=== PATIENT | male | born 1980 | race Caucasian/White ===

== ENCOUNTER 2023-01-01 13:41 | Observation (INO) | payer BC ==
[2023-01-01 14:02] VITALS: BMI 23.0
[2023-01-01] MEDS ORDERED: LACTATED RINGERS SOLUTION 1000 ML INFUS.BAG IV ONE (14:21)
[2023-01-01 15:29] LABS: BASO % 2.7 % (0-2.0); EOS % 3.1 % (0-4.5); HEMATOCRIT 38.3 % (35.4-49); HEMOGLOBIN 12.7 GM/dL (11.7-16.9); LYMPH % 35.5 % (8-40); MCH 32.1 pg (25.7-33.7); MCHC 33.2 g/dl (32.0-35.9); MEAN CELL VOLUME 96.6 fl (80-96); MEAN PLT VOLUME 10.6 fl (7.5-11.1); MONO % 4.6 % (3.8-10.2); NEUT % 54.1 % (42.8-82.8); PLATELET COUNT 53 10^3/uL (134-434); RBC 3.97 M/mm3 (4.00-5.60); RDW 14.3 % (11.9-15.9); WHITE BLOOD COUNT 3.9 K/mm3 (4.0-10.0)
[2023-01-01 16:04] LABS: POTASSIUM 3.1 mmol/L (3.5-5.1)
[2023-01-01 16:06] LABS: CALCIUM 7.4 mg/dL (8.5-10.1)
[2023-01-01 16:07] LABS: ALBUMIN 3.8 g/dl (3.4-5.0); BLOOD UREA NITROGEN 7.3 mg/dL (7-18)
[2023-01-01 16:10] LABS: CREATININE 0.4 mg/dL (0.55-1.3)
[2023-01-01] MEDS ORDERED: POTASSIUM CHLORIDE ORAL LIQUID 20 MEQ/15 ML PO ONE (16:10)
[2023-01-01 16:12] LABS: BILIRUBIN,TOTAL 0.6 mg/dL (0.2-1); TOT PROT 6.7 g/dl (6.4-8.2)
[2023-01-01] MEDS ORDERED: POTASSIUM CHLORIDE ORAL LIQUID 20 MEQ/15 ML ONE (16:12)
[2023-01-01 17:31] LABS: MAGNESIUM 1.4 mg/dL (1.8-2.4)
[2023-01-01] MEDS ORDERED: MAGNESIUM SULFATE IN WATER 2 GM/50 ML IVPB IVPB ONE ×2 (18:07→18:16)
[2023-01-01] MEDS ORDERED: diazePAM CARPU-JECT 10 MG/2 ML DISP.SYRIN IVPUSH ONE (22:34)
[2023-01-01] MEDS ORDERED: chlordiazePOXIDE HCL 25 MG CAPSULE PO ONE (22:34)
[2023-01-01 23:11] VITALS: RESP 18
[2023-01-01] MEDS ORDERED: diazePAM CARPU-JECT 10 MG/2 ML DISP.SYRIN ONE (23:11)
[2023-01-01] MEDS ORDERED: chlordiazePOXIDE HCL 25 MG CAPSULE ONE (23:12)
[2023-01-01 23:55] LABS: POTASSIUM 3.4 mmol/L (3.5-5.1)
[2023-01-01 23:56] LABS: BLOOD UREA NITROGEN 6.5 mg/dL (7-18); CALCIUM 7.9 mg/dL (8.5-10.1); MAGNESIUM 1.7 mg/dL (1.8-2.4)
[2023-01-02] LABS: CREATININE 0.5 mg/dL (0.55-1.3)
[2023-01-02] MEDS ORDERED: FOLIC ACID INJECTION - 1 MG, THIAMINE HCL 100 MG, MULTIVIT INJECTION ADULT 10 ML in SOD... IVPB ONE ×2 (03:33→05:43)
[2023-01-02] MEDS ORDERED: diazePAM CARPU-JECT 10 MG/2 ML DISP.SYRIN IVPUSH ONE (03:33)
[2023-01-02] MEDS ORDERED: diazePAM CARPU-JECT 10 MG/2 ML DISP.SYRIN ONE (03:37)
[2023-01-02] MEDS ORDERED: LORazepam 1 MG TABLET PO PRN (05:39)
[2023-01-02] MEDS: LORazepam 2 MG TABLET PO SCH ×2 (06:19→12:30)
[2023-01-02] MEDS: PHENYTOIN NA EXTENDED 100 MG CAPSULE (FP) PO ONE ×2 (06:19→06:22)
[2023-01-02] MEDS ORDERED: LORazepam 1 MG TABLET ONE (06:20)
[2023-01-02 11:17] LABS: HEMATOCRIT 35.6 % (35.4-49); MCH 32.4 pg (25.7-33.7); MCHC 33.7 g/dl (32.0-35.9); MEAN CELL VOLUME 96.1 fl (80-96); MEAN PLT VOLUME 10.4 fl (7.5-11.1); PLATELET COUNT 44 10^3/uL (134-434); RDW 13.8 % (11.9-15.9); WHITE BLOOD COUNT 4.6 K/mm3 (4.0-10.0)
[2023-01-02 11:59] LABS: POTASSIUM 3.7 mmol/L (3.5-5.1)
[2023-01-02] MEDS ORDERED: LORazepam 1 MG TABLET PO SCH (12:00)
[2023-01-02 12:02] LABS: CALCIUM 8.3 mg/dL (8.5-10.1)
[2023-01-02 12:03] LABS: ALBUMIN 3.4 g/dl (3.4-5.0); BLOOD UREA NITROGEN 7.1 mg/dL (7-18); MAGNESIUM 1.5 mg/dL (1.8-2.4)
[2023-01-02 12:05] LABS: CREATININE 0.4 mg/dL (0.55-1.3); PHOSPHOROUS 2.9 mg/dL (2.5-4.9)
[2023-01-02 12:07] LABS: BILIRUBIN,TOTAL 1.9 mg/dL (0.2-1); TOT PROT 6.4 g/dl (6.4-8.2)
[2023-01-02] MEDS: LORazepam 1 MG TABLET PO SCH ×3 (12:18→22:18)
[2023-01-02] MEDS: NICOTINE 14 MG/24 HOURS TOPICAL PATCH TD SCH (12:20)
[2023-01-02] MEDS: FOLIC ACID 1 MG TABLET (FP) PO SCH (12:20)
[2023-01-02] MEDS: THIAMINE HCL 200 MG/2 ML VIAL IVPB SCH (12:20)
[2023-01-02] MEDS: ENOXAPARIN NA (PORCINE) 40 MG/0.4 ML DISP.SYRIN SQ SCH (12:26)
[2023-01-02] MEDS: PHENYTOIN NA EXTENDED 100 MG CAPSULE (FP) PO SCH ×2 (15:10→22:19)
[2023-01-03] MEDS ORDERED: MELATONIN 5 MG TABLETS PO ONE (00:15)
[2023-01-03] MEDS ORDERED: LORazepam 1 MG TABLET PO SCH (05:00)
[2023-01-03] MEDS: PHENYTOIN NA EXTENDED 100 MG CAPSULE (FP) PO SCH (06:12)
[2023-01-03] MEDS ORDERED: ONDANSETRON 4 MG/2 ML VIAL IVPUSH PRN (08:12)
[2023-01-03 08:46] LABS: BASO % 1.4 % (0-2.0); EOS % 4.4 % (0-4.5); HEMATOCRIT 39.7 % (35.4-49); HEMOGLOBIN 13.1 GM/dL (11.7-16.9); LYMPH % 24.4 % (8-40); MCH 32.2 pg (25.7-33.7); MCHC 33.1 g/dl (32.0-35.9); MEAN CELL VOLUME 97.4 fl (80-96); MEAN PLT VOLUME 11.6 fl (7.5-11.1); MONO % 4.9 % (3.8-10.2); NEUT % 64.9 % (42.8-82.8); PLATELET COUNT 53 10^3/uL (134-434); RBC 4.07 M/mm3 (4.00-5.60); RDW 13.7 % (11.9-15.9); WHITE BLOOD COUNT 4.9 K/mm3 (4.0-10.0)
[2023-01-03 09:09] VITALS: BP 148/98; PULSE 88; TEMP 98
[2023-01-03 09:36] LABS: POTASSIUM 3.3 mmol/L (3.5-5.1)
[2023-01-03 09:38] LABS: ALBUMIN 4.1 g/dl (3.4-5.0)
[2023-01-03 09:39] LABS: BLOOD UREA NITROGEN 4.6 mg/dL (7-18)
[2023-01-03 09:41] LABS: CREATININE 0.5 mg/dL (0.55-1.3)
[2023-01-03 09:43] LABS: BILIRUBIN,TOTAL 1.6 mg/dL (0.2-1); TOT PROT 7.4 g/dl (6.4-8.2)
[2023-01-03 09:52] LABS: CALCIUM 9.6 mg/dL (8.5-10.1)
[2023-01-03] MEDS ORDERED: MULTIVITAMINS (DAILY MVI) TABLET (FP) PO SCH (10:00)
[2023-01-03] MEDS ORDERED: NICOTINE 21 MG/24 HOURS TOPICAL PATCH TD SCH (10:00)
[2023-01-03] MEDS: FOLIC ACID 1 MG TABLET (FP) PO SCH (10:04)
[2023-01-03] MEDS: THIAMINE HCL 200 MG/2 ML VIAL IVPB SCH (10:04)
[2023-01-03] MEDS: ENOXAPARIN NA (PORCINE) 40 MG/0.4 ML DISP.SYRIN SQ SCH (10:04)
[2023-01-03] MEDS: NICOTINE 14 MG/24 HOURS TOPICAL PATCH TD SCH (10:04)
[2023-01-04] MEDS ORDERED: LORazepam 0.5 MG TABLET PO PRN
[2023-01-04] MEDS ORDERED: LORazepam 0.5 MG TABLET PO SCH (05:00)
[2023-01-05] MEDS ORDERED: LORazepam 0.5 MG TABLET PO ONE (05:00)
== END 2023-01-03 10:59 | disposition left against medical advice (07) ==
LOC: JER 13:41 → JERBED 23:42 → J5S 01-02 09:54
PROVIDERS: ADMIT Internal Medicine; ATTEND Internal Medicine
PROC: 3E033NZ Introduction of Analgesics, Hypnotics, Sedatives into Peripheral Vein, Percutaneous Approach (ICD-10-PCS; principal; 2023-01-01)
PROC: 3E033GC Introduction of Other Therapeutic Substance into Peripheral Vein, Percutaneous Approach (ICD-10-PCS; 2023-01-01)
PROC: 3E0337Z Introduction of Electrolytic and Water Balance Substance into Peripheral Vein, Percutaneous Approach (ICD-10-PCS; 2023-01-01)
DX: F10.939 Alcohol use, unspecified with withdrawal, unspecified (principal); R29.6 Repeated falls; Z91.148 Patient's other noncompliance with medication regimen for other reason; Z29.89 Encounter for other specified prophylactic measures; R74.01 Elevation of levels of liver transaminase levels; D69.6 Thrombocytopenia, unspecified
CPT/HCPCS: 36415; 70450-TC; 76705-TC; 80048; 80053; 80185; 80307; 83735; 84100; 85025; 85027; 86704; 86709; 86803; 87340; 87517; 93005; 93010; 96365; 96367; 96375; 99285-25; G0378

== ENCOUNTER 2023-01-03 11:44 | Inpatient (IN) | payer BC ==
[2023-01-03] MEDS ORDERED: chlordiazePOXIDE HCL 25 MG CAPSULE PO ONE (12:40)
[2023-01-03] MEDS ORDERED: chlordiazePOXIDE HCL 25 MG CAPSULE ONE (12:45)
[2023-01-03] MEDS ORDERED: THIAMINE HCL 200 MG/2 ML VIAL IVPB ONE (14:01)
[2023-01-03] MEDS ORDERED: LACTATED RINGERS SOLUTION 1000 ML INFUS.BAG IV ONE (14:15)
[2023-01-03] MEDS ORDERED: THIAMINE HCL 200 MG/2 ML VIAL ONE (14:32)
[2023-01-03 14:33] LABS: BASO % 1.3 % (0-2.0); EOS % 1.7 % (0-4.5); HEMATOCRIT 38.5 % (35.4-49); HEMOGLOBIN 12.9 GM/dL (11.7-16.9); MCH 32.3 pg (25.7-33.7); MCHC 33.6 g/dl (32.0-35.9); MEAN CELL VOLUME 96.1 fl (80-96); MEAN PLT VOLUME 10.6 fl (7.5-11.1); PLATELET COUNT 49 10^3/uL (134-434); WHITE BLOOD COUNT 5.6 K/mm3 (4.0-10.0)
[2023-01-03 14:52] LABS: CHLORIDE 99 mmol/L (98-107); POTASSIUM 3.5 mmol/L (3.5-5.1); SODIUM 136 mmol/L (136-145)
[2023-01-03 14:56] LABS: ALBUMIN 4.1 g/dl (3.4-5.0); CALCIUM 9.6 mg/dL (8.5-10.1)
[2023-01-03 14:57] LABS: ANION GAP 9 mmol/L (4-13); BLOOD UREA NITROGEN 7.2 mg/dL (7-18); CO2 28 mmol/L (21-32); GLUCOSE,RANDOM 117 mg/dL (74-106)
[2023-01-03 14:59] LABS: CREATININE 0.6 mg/dL (0.55-1.3)
[2023-01-03 15:00] LABS: BILIRUBIN,TOTAL 1.3 mg/dL (0.2-1); SGOT/AST 224 U/L (15-37); SGPT/ALT 148 U/L (13-61); TOT PROT 7.5 g/dl (6.4-8.2)
[2023-01-03 15:02] LABS: ALK PHOS 93 U/L (45-117)
[2023-01-03] MEDS ORDERED: diazePAM CARPU-JECT 10 MG/2 ML DISP.SYRIN IVPUSH ONE ×4 (16:21→17:18)
[2023-01-03] MEDS ORDERED: diazePAM CARPU-JECT 10 MG/2 ML DISP.SYRIN ONE ×3 (16:22→17:20)
[2023-01-03 16:31] LABS: COCAINE, UR NEGATIVE (NEGATIVE); OPIATES, URI NEGATIVE (NEGATIVE); PHENCYCLIDINE,URINE NEGATIVE (NEGATIVE); URINE AMPHETAMINES NEGATIVE (NEGATIVE); URINE BARBITURATES NEGATIVE (NEGATIVE)
[2023-01-03 16:33] LABS: METHADONE, UR NEGATIVE (NEGATIVE)
[2023-01-03 16:34] LABS: URINE BENZODIAZEPINES POSITIVE (NEGATIVE)
[2023-01-03] MEDS ORDERED: chlordiazePOXIDE HCL 25 MG CAPSULE PO PRN (17:19)
[2023-01-03] MEDS ORDERED: ONDANSETRON 4 MG/2 ML VIAL IVPUSH PRN (17:19)
[2023-01-03] MEDS ORDERED: ACETAMINOPHEN 325 MG TABLET (FP) PO PRN (17:19)
[2023-01-03] MEDS: DEXMEDETOMIDINE PREMIX 400 MCG/100 ML BAG IVPB SCH ×2 (17:49→22:27)
[2023-01-03] MEDS ORDERED: PHENobarbital SODIUM 65 MG/1 ML VIAL IVPUSH ONE (19:00)
[2023-01-03 21:11] VITALS: BMI 20.9
[2023-01-03] MEDS: THIAMINE HCL 200 MG/2 ML VIAL IVPB SCH (21:22)
[2023-01-03] MEDS: CHLORHEXIDINE GLUCONATE 4% CLEANSER FOR DECOLONIZATION TP SCH (21:23)
[2023-01-03] MEDS: MUPIROCIN 2% TOPICAL OINTMENT FOR DECOLONIZATION NS SCH (21:51)
[2023-01-04] MEDS: THIAMINE HCL 200 MG/2 ML VIAL IVPB SCH ×3 (03:38→20:30)
[2023-01-04] MEDS: chlordiazePOXIDE HCL 25 MG CAPSULE PO SCH ×4 (05:36→22:51)
[2023-01-04] MEDS: DEXMEDETOMIDINE PREMIX 400 MCG/100 ML BAG IVPB SCH ×2 (05:40→18:30)
[2023-01-04 07:32] LABS: HEMATOCRIT 38.7 % (35.4-49); HEMOGLOBIN 12.7 GM/dL (11.7-16.9); MCH 32.2 pg (25.7-33.7); MCHC 32.8 g/dl (32.0-35.9); MEAN CELL VOLUME 98.1 fl (80-96); MEAN PLT VOLUME 11.8 fl (7.5-11.1); PLATELET COUNT 44 10^3/uL (134-434); RBC 3.94 M/mm3 (4.00-5.60); RDW 13.5 % (11.9-15.9); WHITE BLOOD COUNT 6.6 K/mm3 (4.0-10.0)
[2023-01-04 07:48] LABS: POTASSIUM 3.5 mmol/L (3.5-5.1)
[2023-01-04 07:52] LABS: ALBUMIN 3.4 g/dl (3.4-5.0); CALCIUM 8.4 mg/dL (8.5-10.1); MAGNESIUM 1.5 mg/dL (1.8-2.4)
[2023-01-04 07:54] LABS: BLOOD UREA NITROGEN 6.2 mg/dL (7-18)
[2023-01-04] MEDS ORDERED: MAGNESIUM SULFATE IN WATER 2 GM/50 ML IVPB IVPB ONE (07:55)
[2023-01-04 07:56] LABS: CREATININE 0.3 mg/dL (0.55-1.3)
[2023-01-04 07:57] LABS: PHOSPHOROUS 4.6 mg/dL (2.5-4.9); TOT PROT 6.6 g/dl (6.4-8.2)
[2023-01-04] MEDS: LACTATED RINGERS SOLUTION 1,000 ML/1,000 ML INFUS.BAG IV SCH (09:40)
[2023-01-04] MEDS: MUPIROCIN 2% TOPICAL OINTMENT FOR DECOLONIZATION NS SCH ×2 (09:40→21:15)
[2023-01-04] MEDS ORDERED: POTASSIUM CHLORIDE ORAL LIQUID 20 MEQ/15 ML PO ONE (10:00)
[2023-01-04] MEDS: FOLIC ACID 1 MG TABLET (FP) PO SCH ×2 (10:03→10:25)
[2023-01-04] MEDS: PANTOPRAZOLE 40 MG TABLET PO SCH ×2 (10:03→10:25)
[2023-01-04] MEDS: ENOXAPARIN NA (PORCINE) 40 MG/0.4 ML DISP.SYRIN SQ SCH (10:23)
[2023-01-04] MEDS: CHLORHEXIDINE GLUCONATE 4% CLEANSER FOR DECOLONIZATION TP SCH (21:15)
[2023-01-05] MEDS ORDERED: chlordiazePOXIDE HCL 10 MG CAPSULE PO PRN
[2023-01-05] MEDS: THIAMINE HCL 200 MG/2 ML VIAL IVPB SCH ×2 (04:22→12:43)
[2023-01-05] MEDS: chlordiazePOXIDE HCL 25 MG CAPSULE PO SCH ×4 (04:22→22:15)
[2023-01-05] MEDS: LACTATED RINGERS SOLUTION 1,000 ML/1,000 ML INFUS.BAG IV SCH ×3 (06:07→17:34)
[2023-01-05 07:03] LABS: HEMATOCRIT 34.7 % (35.4-49); HEMOGLOBIN 11.4 GM/dL (11.7-16.9); MCH 32.2 pg (25.7-33.7); MCHC 32.9 g/dl (32.0-35.9); MEAN PLT VOLUME 10.8 fl (7.5-11.1); PLATELET COUNT 46 10^3/uL (134-434); RBC 3.54 M/mm3 (4.00-5.60); RDW 13.4 % (11.9-15.9); WHITE BLOOD COUNT 4.5 K/mm3 (4.0-10.0)
[2023-01-05 07:09] LABS: INR 0.98 (0.83-1.09); PROTHROMBIN TIME (PATIENT) 11.4 SEC (9.7-13.0)
[2023-01-05 07:27] LABS: CALCIUM 7.8 mg/dL (8.5-10.1)
[2023-01-05 07:28] LABS: MAGNESIUM 1.6 mg/dL (1.8-2.4)
[2023-01-05 07:29] LABS: CREATININE 0.5 mg/dL (0.55-1.3)
[2023-01-05 07:30] LABS: BILIRUBIN,DIRECT 0.3 mg/dL (0.0-0.2); BILIRUBIN,TOTAL 0.8 mg/dL (0.2-1); PHOSPHOROUS 3.9 mg/dL (2.5-4.9); TOT PROT 5.6 g/dl (6.4-8.2)
[2023-01-05] MEDS ORDERED: MAGNESIUM SULF 50% (8.12 MEQ/2 ML-1 GM VIAL) IVPB ONE (09:30)
[2023-01-05] MEDS ORDERED: POTASSIUM CHLORIDE ORAL LIQUID 20 MEQ/15 ML PO ONE (09:45)
[2023-01-05] MEDS: PANTOPRAZOLE 40 MG TABLET PO SCH (10:30)
[2023-01-05] MEDS: FOLIC ACID 1 MG TABLET (FP) PO SCH (10:30)
[2023-01-05] MEDS: ENOXAPARIN NA (PORCINE) 40 MG/0.4 ML DISP.SYRIN SQ SCH (10:30)
[2023-01-05] MEDS: MUPIROCIN 2% TOPICAL OINTMENT FOR DECOLONIZATION NS SCH ×2 (10:31→21:36)
[2023-01-05] MEDS: NICOTINE 21 MG/24 HOURS TOPICAL PATCH TD SCH (15:39)
[2023-01-05] MEDS: CHLORHEXIDINE GLUCONATE 4% CLEANSER FOR DECOLONIZATION TP SCH (21:36)
[2023-01-06] MEDS ORDERED: LACTATED RINGERS SOLUTION 1,000 ML/1,000 ML INFUS.BAG IV SCH (04:13)
[2023-01-06] MEDS ORDERED: ACETAMINOPHEN 325 MG TABLET (FP) PO PRN (04:13)
[2023-01-06] MEDS ORDERED: chlordiazePOXIDE HCL 10 MG CAPSULE PO SCH (05:00)
[2023-01-06] MEDS: chlordiazePOXIDE HCL 10 MG CAPSULE PO SCH ×3 (06:08→16:53)
[2023-01-06] MEDS ORDERED: PANTOPRAZOLE 40 MG TABLET PO SCH (10:00)
[2023-01-06] MEDS ORDERED: FOLIC ACID 1 MG TABLET (FP) PO SCH (10:00)
[2023-01-06] MEDS ORDERED: THIAMINE HCL 200 MG/2 ML VIAL IVPB SCH ×2 (10:00)
[2023-01-06] MEDS ORDERED: ENOXAPARIN NA (PORCINE) 40 MG/0.4 ML DISP.SYRIN SQ SCH (10:00)
[2023-01-06] MEDS: NICOTINE 21 MG/24 HOURS TOPICAL PATCH TD SCH (10:20)
[2023-01-06 11:05] LABS: BASO % 1.4 % (0-2.0); EOS % 6.3 % (0-4.5); HEMATOCRIT 35.9 % (35.4-49); HEMOGLOBIN 11.7 GM/dL (11.7-16.9); LYMPH % 25.9 % (8-40); MCH 31.9 pg (25.7-33.7); MCHC 32.6 g/dl (32.0-35.9); MEAN CELL VOLUME 97.9 fl (80-96); MEAN PLT VOLUME 10.7 fl (7.5-11.1); MONO % 12.5 % (3.8-10.2); NEUT % 53.9 % (42.8-82.8); PLATELET COUNT 82 10^3/uL (134-434); RBC 3.66 M/mm3 (4.00-5.60); RDW 13.4 % (11.9-15.9); WHITE BLOOD COUNT 5.4 K/mm3 (4.0-10.0)
[2023-01-06 11:23] LABS: POTASSIUM 4.8 mmol/L (3.5-5.1)
[2023-01-06 11:25] LABS: ALBUMIN 3.2 g/dl (3.4-5.0); BLOOD UREA NITROGEN 4.9 mg/dL (7-18); CALCIUM 8.2 mg/dL (8.5-10.1); MAGNESIUM 1.8 mg/dL (1.8-2.4)
[2023-01-06 11:28] LABS: CREATININE 0.5 mg/dL (0.55-1.3)
[2023-01-06 11:30] LABS: BILIRUBIN,TOTAL 0.6 mg/dL (0.2-1); TOT PROT 6.5 g/dl (6.4-8.2)
[2023-01-06] MEDS ORDERED: levETIRAcetam 500 MG TABLET (FP) PO ONE (17:41)
[2023-01-06 19:30] VITALS: BP 131/89; PULSE 68; RESP 18; TEMP 98
[2023-01-06] MEDS ORDERED: levETIRAcetam 500 MG TABLET (FP) PO SCH (22:00)
[2023-01-07] MEDS ORDERED: chlordiazePOXIDE HCL 10 MG CAPSULE PO SCH ×2 (05:00)
[2023-01-08] MEDS ORDERED: chlordiazePOXIDE HCL 10 MG CAPSULE PO ONE ×2 (05:00)
== END 2023-01-06 21:11 | disposition left against medical advice (07) | DRG 770 ==
LOC: JER 11:44 → JERBED 16:50 → JICU 19:06 → J5S 01-06 05:59
PROVIDERS: ADMIT Internal Medicine Pulmonary Disease
PROC: HZ2ZZZZ Detoxification Services for Substance Abuse Treatment (ICD-10-PCS; principal; 2023-01-03)
DX: F10.131 Alcohol abuse with withdrawal delirium (principal); R56.9 Unspecified convulsions; R44.0 Auditory hallucinations; R26.81 Unsteadiness on feet; E80.6 Other disorders of bilirubin metabolism; R74.01 Elevation of levels of liver transaminase levels; F17.210 Nicotine dependence, cigarettes, uncomplicated; E87.6 Hypokalemia; E83.42 Hypomagnesemia; K70.10 Alcoholic hepatitis without ascites; Z91.199 Patient's noncompliance with other medical treatment and regimen due to unspecified reason
CPT/HCPCS: 36415; 70450-TC; 71045-TC-FY; 80048; 80053; 80076; 80307; 82140; 82962; 83735; 84100; 84484; 85025; 85027; 85610; 87635; 93005; 93010; 94010; 99285-25